=== PATIENT | male | born 1965 | race Caucasian/White ===

== ENCOUNTER 2018-02-15 19:38 | Emergency (ER) | payer SELFPAY ==
[~2018-02-15] VITALS: Wt 70.3 kg
[2018-02-15] MEDS ORDERED: BUPRENORPHINE HY8 MG SL (19:49)
[2018-02-15 20:18] LABS: BASO # 0.1 10*3/uL (0.0-0.1); BASO % 0.7 % (0.0-1.0); EOS # 0.5 10*3/uL (0.0-0.4); EOS % 7.8 % (1.0-4.0); HEMATOCRIT 32.4 % (42.0-52.0); HEMOGLOBIN 10.6 g/dl (14.0-18.0); LYMPH # 1.8 10*3/uL (1.3-4.4); LYMPH % 25.9 % (27.0-41.0); MEAN CORPUSCULAR HGB 27.8 pg (27.0-31.0); MEAN CORPUSCULAR HGB CONC 32.7 g/dl (33.0-37.0); MONO # 0.7 10*3/uL (0.1-1.0); NEUT # 3.8 10*3/uL (2.3-7.9); NEUT % 55.5 % (47.0-73.0); PLATELET COUNT AUTOMATED 303 10*3/uL (130-400); RED BLOOD COUNT 3.81 10*6/uL (4.50-5.90); RED CELL DISTRI WIDTH 13.2 % (0-14.5); WHITE BLOOD COUNT 6.8 10*3/uL (4.8-10.8)
[2018-02-15] MEDS ORDERED: CEPHALEXIN500 M1 PO (20:30)
[2018-02-15] MEDS ORDERED: SEPTDS PO (20:30)
[2018-02-15 20:36] LABS: ALBUMIN 2.9 gm/dl (3.1-4.5); ALKALINE PHOSPHATASE 61 U/L (45-117); BUN 7 mg/dl (7-24); CHLORIDE 100 mmol/L (98-107); POTASSIUM 3.5 mmol/L (3.5-5.1); SGOT/AST 21 IU/L (3-35); SGPT/ALT 19 U/L (12-78); SODIUM 135 mmol/L (136-145); TOTAL PROTEIN 6.7 gm/dL (6.4-8.2)
== END 2018-02-15 21:36 | disposition home or self-care (01) ==
LOC: ED 19:38
PROVIDERS: Physician Assistant
DX: L03.116 Cellulitis of left lower limb (principal); Z98.890 Other specified postprocedural states

== ENCOUNTER 2018-07-12 17:29 | Emergency (ER) | payer SELFPAY ==
[~2018-07-12] VITALS: Ht 162.5 cm; Wt 70.3 kg
[~2018-07-12 17:29] MED LIST: BUPRENORPHINE HY8 MG SL; CEPHALEXIN500 M1 PO; SEPTDS PO
[2018-07-12 18:23] LABS: BASO # 0.1 10*3/uL (0.0-0.1); BASO % 0.7 % (0.0-1.0); EOS # 0.2 10*3/uL (0.0-0.4); EOS % 2.6 % (1.0-4.0); HEMATOCRIT 43.1 % (42.0-52.0); LYMPH # 2.1 10*3/uL (1.3-4.4); LYMPH % 23.1 % (27.0-41.0); MEAN CELL VOLUME 86.5 fl (80.0-94.0); MEAN CORPUSCULAR HGB 28.1 pg (27.0-31.0); MEAN CORPUSCULAR HGB CONC 32.5 g/dl (33.0-37.0); MEAN PLATELET VOLUME 9.2 fl (9.6-12.3); MONO # 0.5 10*3/uL (0.1-1.0); MONO % 5.9 % (3.0-9.0); NEUT % 67.5 % (47.0-73.0); PLATELET COUNT AUTOMATED 328 10*3/uL (130-400); RED BLOOD COUNT 4.98 10*6/uL (4.50-5.90); RED CELL DISTRI WIDTH 13.7 % (0-14.5); WHITE BLOOD COUNT 8.9 10*3/uL (4.8-10.8)
[2018-07-12 18:35] LABS: ACT PARTIAL THROMBO TIME 23.5 SECONDS (20.8-31.5)
[2018-07-12 18:42] LABS: ALBUMIN 3.9 gm/dl (3.1-4.5); ALKALINE PHOSPHATASE 64 U/L (45-117); BUN 10 mg/dl (7-24); CHLORIDE 104 mmol/L (98-107); CREATININE 0.98 mg/dL (0.70-1.30); POTASSIUM 3.2 mmol/L (3.5-5.1); SGOT/AST 14 IU/L (3-35); SGPT/ALT 15 U/L (12-78); SODIUM 139 mmol/L (136-145); TOTAL PROTEIN 8.1 gm/dL (6.4-8.2)
[2018-07-12] MEDS ORDERED: CEFADROXIL500 M1 PO (20:27)
[2018-07-12] MEDS ORDERED: IBU600 M1 PO (20:27)
[2018-07-12] MEDS ORDERED: Tobrex Ophth S2.5 ML OPH (20:27)
== END 2018-07-12 20:34 | disposition home or self-care (01) ==
LOC: ED 17:29
PROVIDERS: Physician Assistant
DX: H10.89 Other conjunctivitis (principal); B96.89 Other specified bacterial agents as the cause of diseases classified elsewhere; F17.200 Nicotine dependence, unspecified, uncomplicated; Z98.890 Other specified postprocedural states

== ENCOUNTER 2019-02-21 20:43 | Emergency (ER) | payer SELFPAY ==
[~2019-02-21] VITALS: Ht 162.5 cm; Wt 70.3 kg
[~2019-02-21 20:43] MED LIST changes: +CEFADROXIL500 M1 PO; +IBU600 M1 PO; +Tobrex Ophth S2.5 ML OPH
[2019-02-21] MEDS ORDERED: ZOFRAN4 MG PO (21:19)
== END 2019-02-21 21:26 | disposition home or self-care (01) ==
LOC: ED 20:43
DX: R11.2 Nausea with vomiting, unspecified (principal); F11.10 Opioid abuse, uncomplicated; F17.200 Nicotine dependence, unspecified, uncomplicated; Z79.899 Other long term (current) drug therapy

== ENCOUNTER 2019-03-02 07:19 | Emergency (ER) | payer SELFPAY ==
[~2019-03-02] VITALS: Ht 162.5 cm; Wt 70.3 kg
[~2019-03-02 07:19] MED LIST changes: +ZOFRAN4 MG PO
[2019-03-02] MEDS ORDERED: Motrin,Rufen800 MG PO (08:57)
== END 2019-03-02 09:10 | disposition home or self-care (01) ==
LOC: ED
DX: S93.401A Sprain of unspecified ligament of right ankle, initial encounter (principal); W10.8XXA Fall (on) (from) other stairs and steps, initial encounter; Y93.89 Activity, other specified; Y92.89 Other specified places as the place of occurrence of the external cause; Y99.8 Other external cause status

== ENCOUNTER 2019-07-11 23:38 | Emergency (ER) | payer SELFPAY ==
[~2019-07-11] VITALS: Wt 70.3 kg
[~2019-07-11 23:38] MED LIST changes: +Motrin,Rufen800 MG PO
[2019-07-12] MEDS ORDERED: TOBRAMYCIN 5 ML5 M1 OPH (00:21)
== END 2019-07-12 00:40 | disposition home or self-care (01) ==
LOC: ED 23:38
DX: S05.02XA Injury of conjunctiva and corneal abrasion without foreign body, left eye, initial encounter (principal); F17.200 Nicotine dependence, unspecified, uncomplicated; Z79.899 Other long term (current) drug therapy; X58.XXXA Exposure to other specified factors, initial encounter; Y93.89 Activity, other specified; Y92.89 Other specified places as the place of occurrence of the external cause; Y99.8 Other external cause status

== ENCOUNTER 2020-04-09 12:14 | Emergency (ER) | payer SELFPAY ==
[~2020-04-09] VITALS: Ht 162.5 cm; Wt 70.3 kg
[~2020-04-09 12:14] MED LIST changes: +TOBRAMYCIN 5 ML5 M1 OPH
== END 2020-04-09 13:03 | disposition short-term general hospital (02) ==
LOC: ED 12:14
DX: S05.92XA Unspecified injury of left eye and orbit, initial encounter (principal); F17.200 Nicotine dependence, unspecified, uncomplicated; Z79.899 Other long term (current) drug therapy; X58.XXXA Exposure to other specified factors, initial encounter; Y93.89 Activity, other specified; Y92.89 Other specified places as the place of occurrence of the external cause; Y99.8 Other external cause status

== ENCOUNTER 2020-09-23 20:54 | Emergency (ER) | payer SELFPAY ==
[2020-09-23] MEDS ORDERED: AMOXICILLIN500 M2 PO (22:24)
== END 2020-09-23 22:27 | disposition home or self-care (01) ==
LOC: ED 20:54
DX: K08.89 Other specified disorders of teeth and supporting structures (principal); Z79.899 Other long term (current) drug therapy

== ENCOUNTER 2024-08-20 22:59 | Emergency (ER) | payer SELFPAY ==
[~2024-08-20] VITALS: Ht 167.6 cm; Wt 63.5 kg
[~2024-08-20 22:59] MED LIST changes: +AMOXICILLIN500 M2 PO
[2024-08-20] MEDS ORDERED: Naloxone Hydrochloride 2 MG/2 ML SYR IV ONE ×2 (23:05)
[2024-08-20] MEDS ORDERED: FOLIC ACID 1 MG TAB PO ONE (23:05)
[2024-08-20] MEDS ORDERED: Thiamine 200 MG/2 ML VIAL IV ONE (23:05)
[2024-08-20] MEDS ORDERED: MULTIVITAMIN 1 TAB TAB PO ONE (23:05)
[2024-08-20 23:24] LABS: BASO # 0.1 10*3/uL (0.0-0.1); BASO % 0.7 % (0.0-1.0); EOS # 0.2 10*3/uL (0.0-0.4); EOS % 1.7 % (1.0-4.0); HEMATOCRIT 39.6 % (42.0-52.0); LYMPH # 1.7 10*3/uL (1.3-4.4); LYMPH % 14.2 % (27.0-41.0); MEAN CELL VOLUME 87.2 fl (80.0-94.0); MEAN CORPUSCULAR HGB 28.2 pg (27.0-31.0); MEAN CORPUSCULAR HGB CONC 32.3 g/dl (33.0-37.0); MEAN PLATELET VOLUME 8.9 fl (9.6-12.3); MONO # 0.8 10*3/uL (0.1-1.0); NEUT # 9.2 10*3/uL (2.3-7.9); NEUT % 75.8 % (47.0-73.0); PLATELET COUNT AUTOMATED 361 10*3/uL (130-400); RED BLOOD COUNT 4.54 10*6/uL (4.50-5.90); RED CELL DISTRI WIDTH 13.5 % (0-14.5); WHITE BLOOD COUNT 12.1 10*3/uL (4.8-10.8)
[2024-08-20 23:41] LABS: BUN 15 mg/dl (9-23); CHLORIDE 102 mmol/L (98-107); ETHYL ALCOHOL < 3.0 mg/dl (<3); POTASSIUM 3.9 mmol/L (3.4-5.1)
[2024-08-21 01:58] LABS: BILIRUBIN Negative (Negative); BLOOD Trace-Lysed (Negative); CLARITY Clear (Clear); COLOR Yellow (Yellow); GLUCOSE Negative (Negative); KETONE Negative (Negative); LEUKO ESTERASE Negative (Negative); NITRITE Negative (Negative); UROBILINOGEN 0.2 E.U./dl (0.0-1.0)
[2024-08-21 02:06] LABS: URINE AMPHETAMINES Positive (1000ng/ml); URINE BARBITURATES Negative (200ng/ml); URINE BENZODIAZEPINES Negative (200ng/ml); URINE CANNABINOIDS (THC) Negative (50ng/ml); URINE COCAINE Negative (300ng/ml); URINE METHADONE Negative (300ng/ml); URINE OPIATES Negative (300ng/ml); URINE PHENCYCLIDINE Negative (25ng/ml)
[2024-08-21 02:07] LABS: HYALINE CAST 0-2; MUCOUS TRACE; WBC 0-2 wbc/hpf (0-5)
== END 2024-08-21 01:44 | disposition left against medical advice (07) ==
LOC: ED 22:59
PROVIDERS: Internal Medicine
DX: R40.4 Transient alteration of awareness (principal); F17.200 Nicotine dependence, unspecified, uncomplicated; Z98.890 Other specified postprocedural states; Z53.29 Procedure and treatment not carried out because of patient's decision for other reasons

== ENCOUNTER 2024-12-19 19:18 | Emergency (ER) | payer SELFPAY | END 2024-12-19 22:04 | disposition left against medical advice (07) | LOC: ED 19:18 | DX: F15.10 Other stimulant abuse, uncomplicated (principal); Z98.890 Other specified postprocedural states ==